=== PATIENT | female | born 1960 | race Caucasian/White ===

== ENCOUNTER 2020-01-03 14:09 | Emergency (ER) | payer BC ==
[~2020-01-03] VITALS: Ht 154.9 cm; Wt 77.1 kg
--- NOTE | 2020-01-03 14:26 | Emergency Department Note ---
History of Present Illnes History of Present Illness Chief Complaint: Head/Face Trauma History of Present Illness This is a 59 year old female, with a history of diabetes, hyperlipidemia, depression, who was sitting at her desk at work, when a ceiling fan fell approximately 8 feet, causing a laceration of the right eyebrow area. Patient had no loss of consciousness. Patient's boss brought her in immediately. She's had no nausea, vomiting, visual changes, no headache, only pain around the laceration site no neck pain, pain in the upper arms, numbness, or tingling. Kushal gregor denies any previous head injuries. 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 Arrival Mode: Car History limited by: language barrier Records Assistant Required: No Onset (how long ago): minute(s) (30) Location: right eyebrow Quality: laceration Radiation: Reports non-radiation Severity: moderate Onset quality: sudden Duration (how long): hour(s) (30 min) Timing of current episode: constant Progression: unchanged Chronicity: new Context: Reports trauma/injury (see HPI); Denies recent illness Relieving factors: none Exacerbating factors: none Associated symptoms: Reports denies other symptoms; Denies headaches, Denies nausea/vomiting, Denies weakness Treatments prior to arrival: none Risk factors: diabetes Past Medical/Family History Physician Review I have reviewed the patient's past medical and family history. Any updates have been documented here. Past Medical History Recent Fever: No Clinical Suspicion of Infectio: No New/Unexplained Change in Ment: No Past Medical History: Diabetes, Depression, Hyperlipedemia (week as) Past Surgical History: Appendectomy, Hysterectomy Social History Smoking Cessation: Current every day smoker Counseling Performed: Yes Alcohol Use: None Any Illegal Drug Use: No TB Exposure/Symptoms: No (his) Physically hurt or threatened: No Family History Family history of heart diseas: No Other Last Tetanus: unknown Any Pre-Existing Lines (PICC,: No Review of Systems Review of Systems Constitutional: Reports no symptoms EENTM: Reports no symptoms Cardiovascular: Reports no symptoms Respiratory: Reports no symptoms Gastrointestinal: Reports no symptoms Genitourinary: Reports no symptoms Musculoskeletal: Reports no symptoms Integumentary: Reports as per HPI Neurological: Reports no symptoms Psychological: Reports no symptoms Review of other systems: All other systems negative Physical Exam Related Data Allergies: Coded Allergies: No Known Allergies (Unverified , 01/03/20) Vital signs reviewed: Yes Physical Exam CONSTITUTIONAL Constitutional: Present well-developed, Present well-nourished HENT HENT: Present normocephalic, Present atraumatic, Present oropharynx clear/moist, Present nose normal HENT L/R: Present left ext ear normal, Present right ext ear normal EYES Eyes: Reports PERRL, Reports conjunctivae normal NECK Neck: Present ROM normal PULMONARY Pulmonary: Present effort normal, Present breath sounds normal CARDIOVASCULAR Cardiovascular: Present regular rhythm, Present heart sounds normal, Present capillary refill normal, Present normal rate GASTROINTESTINAL Abdominal: Present soft, Present nontender, Present bowel sounds normal GENITOURINARY Genitourinary: Present exam deferred SKIN Skin: Present other (linear laceration through the right eyebrow, with the medial aspect extending just above the eyebrow) MUSCULOSKELETAL Musculoskeletal: Present ROM normal NEUROLOGICAL Neurological: Present alert, Present oriented x 3, Present no gross motor or sensory deficits PSYCHOLOGICAL Psychological: Present mood/affect normal, Present judgement normal Results Imaging Imaging results reviewed: Yes Impressions [place] [id number] Patient Name: IMAN SANTANA MR #: [id number] : 1960 Age/Sex: 59/F Req #: [id number] Adm Physician: Ordered by: LAYLA WYMAN MD Report #: [id number] Location: [facility] Room/Bed: Procedure: [id number] HOPD/CT C-SPINE W/O - HOPD Exam Date: 01/03/20 Exam Time: 1532 REPORT STATUS: Signed EXAMINATION: Head and cervical spine CT without contrast. HISTORY: 59-year-old female status post fall, trauma, head laceration, pain COMPARISON: None. TECHNIQUE: Multidetector axial images were obtained without contrast from the foramen magnum to the vertex and through the cervical spine. Dose modulation, iterative reconstruction, and/or weight based adjustment of the mA/kV was utilized to reduce the radiation dose to as low as reasonably achievable. HEAD CT FINDINGS: Skull/scalp: No lytic or blastic lesions. Right forehead soft tissue swelling without underlying fractures. Parenchyma: Normal. No mass, hemorrhage or CT evidence of acute vascular insult. Brain volume: Normal for age. Ventricles: No hydrocephalus or displacement. Arteries: No density suggestive of thrombus. Dural sinuses: No abnormal density. Extra-axial spaces: No abnormal density. Foramen magnum: No mass, Chiari malformation, or basilar invagination. Sella: No obvious mass. Paranasal/mastoid sinuses: Imaged portions unremarkable. CERVICAL SPINE CT FINDINGS: Alignment:Normal alignment and lordosis. Soft tissues: Normal. Vertebrae: Normal height and density. No acute fracture, infection or neoplasm. Degenerative changes: None IMPRESSION: Head CT: No intracranial abnormalities, particularly no posttraumatic intracranial hemorrhage. Cervical spine CT: No fractures or dislocations. Note: Acute post traumatic spinal cord, vascular or ligamentous injury cannot adequately be assessed with CT. Signed by: Dr. Hubert Howe M.D. on 01/03/2020 4:29 PM Dictated By: HUBERT HOWE MD 28 Transcribed By: SALIMA on 01/03/201628 COPY TO: LAYLA WYMAN MD~ Procedures Laceration Laceration: Laceration 1 Site: face Side: right Size (cm): 5 Description: linear Depth: involves muscle layer Local anesthesia: lidocaine 1%, with epi Pre-repair: wound exposed, irrigated extensively, deep structures intact Skin layer closed with: other (Prolene) Size (cm): 5-0 Number of sutures: 8 Technique: simple, interrupted Additional comments Wound edges were well approximated, with good hemostasis. Patient tolerated procedure well, with no immediate complications. Assessment & Plan Medical Decision Making MDM - Keep the wound clean and dry for 24 hours, then gently wash with antibacterial soap and water, dry, and then generously apply [id number] antibiotic ointment such as bacitracin or triple antibiotic ointment. Repeat this daily. - Follow-up in 7-10 days for suture removal - Follow-up sooner, with any signs of infection including redness, drainage from the wound, or increased pain or tenderness. Assessment & Plan Final Impression: (1) Facial laceration (2) Diabetes mellitus (3) Hyperlipidemia Depart Disposition: HOME, SELF-CARE Medications in the ED Neomycin/ Polymyxin/ Bacitracin 0.9 gm STK-MED ONCE .ROUTE ; Start 01/03/20 at 14:28; Stop 01/03/20 at 14:24; Status DC Tetanus/ Diphtheria Toxoids 0.5 ml STK-MED ONCE .ROUTE ; Start 01/03/20 at 14:28; Stop 01/03/20 at 14:24; Status DC LAYLA WYMAN MD Jan 03, 2020 14:26
[2020-01-03] MEDS ORDERED: TETANUS/DIPHTHERIA TOX ADULT 0.5 ML SYR ONE (14:28)
[2020-01-03] MEDS ORDERED: NEOMYCIN/POLYMYX/BACITR OINT 0.9 GM PKT ONE (14:28)
[2020-01-03] MEDS ORDERED: TETANUS/DIPHTHERIA TOX ADULT 0.5 ML SYR IM STA (14:30)
[2020-01-03] MEDS ORDERED: NEOMYCIN/POLYMYXIN/BACITRACIN 15 GM TUBE TOP ONE (14:30)
[2020-01-03] MEDS ORDERED: ACETAMINOPHEN 325 MG TAB PO ONE (15:00)
[2020-01-03] MEDS ORDERED: ACETAMINOPHEN 325 MG TAB ONE (15:05)
[2020-01-03] MEDS ORDERED: LIDOCAINE 1% W/EPINEPHRINE 20 ML VIAL ONE (15:19)
--- NOTE | 2020-01-03 16:33 | Diagnostic Imaging Report ---
EXAMINATION: Head and cervical spine CT without contrast. HISTORY: 59-year-old female status post fall, trauma, head laceration, pain COMPARISON: None. TECHNIQUE: Multidetector axial images were obtained without contrast from the foramen magnum to the vertex and through the cervical spine. Dose modulation, iterative reconstruction, and/or weight based adjustment of the mA/kV was utilized to reduce the radiation dose to as low as reasonably achievable. HEAD CT FINDINGS: Skull/scalp: No lytic or blastic lesions. Right forehead soft tissue swelling without underlying fractures. Parenchyma: Normal. No mass, hemorrhage or CT evidence of acute vascular insult. Brain volume: Normal for age. Ventricles: No hydrocephalus or displacement. Arteries: No density suggestive of thrombus. Dural sinuses: No abnormal density. Extra-axial spaces: No abnormal density. Foramen magnum: No mass, Chiari malformation, or basilar invagination. Sella: No obvious mass. Paranasal/mastoid sinuses: Imaged portions unremarkable. CERVICAL SPINE CT FINDINGS: Alignment:Normal alignment and lordosis. Soft tissues: Normal. Vertebrae: Normal height and density. No acute fracture, infection or neoplasm. Degenerative changes: None IMPRESSION: Head CT: No intracranial abnormalities, particularly no posttraumatic intracranial hemorrhage. Cervical spine CT: No fractures or dislocations. Note: Acute post traumatic spinal cord, vascular or ligamentous injury cannot adequately be assessed with CT. Signed by: Dr. Veronica Howe M.D. on 01/03/2020 4:29 PM
== END 2020-01-03 17:11 | disposition home or self-care (01) ==
LOC: FSED 14:09
DX: S01.111A Laceration without foreign body of right eyelid and periocular area, initial encounter (principal); W20.8XXA Other cause of strike by thrown, projected or falling object, initial encounter; Y99.0 Civilian activity done for income or pay; E11.9 Type 2 diabetes mellitus without complications; E78.5 Hyperlipidemia, unspecified; F32.9 Major depressive disorder, single episode, unspecified; F17.210 Nicotine dependence, cigarettes, uncomplicated
CPT/HCPCS: 70450; 72125; 90471; 90714; 99282

== ENCOUNTER 2020-01-13 13:40 | Emergency (ER) | payer OTHER ==
[~2020-01-13] VITALS: Ht 154.9 cm; Wt 77.1 kg
--- OUTSIDE RECORDS SUMMARY | 2020-01-13 15:54 | XMS REPORT | Continuity of Care Document ---
Author Author [facility] t Organization [facility] Address [address] [place] [address] Dr. Jernigan [address] [place] [phone] Phone Unavailable Care Team Providers Care Bookkeeping Clerks Supervisor Name Role Phone Nasima WYMAN Unavailable Problems This patient has no known problems. Allergies, Adverse Reactions, Alerts This patient has no known allergies or adverse reactions. Medications This patient has no known medications. Procedures This patient has no known procedures. Results Test Description Test Time Test Comments Results Result Comments Source CT BRAIN WO-HOPD 2020-01-03 15:42:00 [place] [address] Patient Name: IMAN SANTANA MR #: [id number] : 1960 Age/Sex: 59/F Req #: [id number] Adm Physician: Ordered by: LAYLA WYMAN MD Report #: [id number] Location: [facility] Room/Bed: Procedure: [id number] HOPD/CT BRAIN WO-HOPD Exam Date: 01/03/20 Exam Time: 1529 REPORT STATUS: Signed EXAMINATION: Head and cervical spine CT without contrast. HISTORY: 59-year-old female status post fall, trauma, head laceration, pain COMPARISON: None. TECHNIQUE: Multidetector axial images were obtained without contrast from the foramen magnum to the vertex and through the cervical spine. Dose modulation, iterative reconstruction, and/or weight based adjustment of the mA/kV was utilized to reduce the radiation dose to as low as reasonably achievable. HEAD CT FINDINGS: Skull/scalp: No lytic or blastic lesions. Right forehead soft tissue swelling without underlying fractures. Parenchyma: Normal. No mass, hemorrhage or CT evidence of acute vascular insult. Brain volume: Normal for age. Ventricles: No hydrocephalus or displacement. Arteries: No density suggestive of thrombus. Dural sinuses: No abnormal density. Extra-axial spaces: No abnormal density. Foramen magnum: No mass, Chiari malformation, or basilar invagination. Sella: No obvious mass. Paranasal/mastoid sinuses: Imaged portions unremarkable. CERVICAL SPINE CT FINDINGS: Alignment:Normal alignment and lordosis. Soft tissues: Normal. Vertebrae: Normal height and density. No acute fracture, infection or neoplasm. Degenerative changes: None IMPRESSION: Head CT: No intracranial abnormalities, particularly no posttraumatic intracranial hemorrhage. Cervical spine CT: No fractures or dislocations. Note: Acute post traumatic spinal cord, vascular or ligamentous injury cannot adequately be assessed with CT. Signed by: Dr. Hubert Howe M.D. on 01/03/2020 4:29 PM Dictated By: HUBERT HOWE MD 28 Transcribed By: SALIMA on 01/03/201628 COPY TO: LAYLA WYMAN MD CT C-SPINE W/O - [facility] 2020-01-03 15:42:00 [place] [address] Patient Name: IMAN SANTANA MR #: [id number] : 1960 Age/Sex: 59/F Req #: [id number] Adm Physician: Ordered by: LAYLA WYMAN MD Report #: [id number] Location: [facility] Room/Bed: Procedure: [id number] HOPD/CT C-SPINE W/O - HOPD Exam Date: 01/03/20 Exam Time: 1532 REPORT STATUS: Signed EXAMINATION: Head and cervical spine CT without contrast. HISTORY: 59-year-old female status post fall, trauma, head laceration, pain COMPARISON: None. TECHNIQUE: Multidetector axial images were obtained without contrast from the foramen magnum to the vertex and through the cervical spine. Dose modulation, iterative reconstruction, and/or weight based adjustment of the mA/kV was utilized to reduce the radiation dose to as low as reasonably achievable. HEAD CT FINDINGS: Skull/scalp: No lytic or blastic lesions. Right forehead soft tissue swelling without underlying fractures. Parenchyma: Normal. No mass, hemorrhage or CT evidence of acute vascular insult. Brain volume: Normal for age. Ventricles: No hydrocephalus or displacement. Arteries: No density suggestive of thrombus. Dural sinuses: No abnormal density. Extra-axial spaces: No abnormal density. Foramen magnum: No mass, Chiari malformation, or basilar invagination. Sella: No obvious mass. Paranasal/mastoid sinuses: Imaged portions unremarkable. CERVICAL SPINE CT FINDINGS: Alignment:Normal alignment and lordosis. Soft tissues: Normal. Vertebrae: Normal height and de nsity. No acute fracture, infection or neoplasm. Degenerative changes: None
--- NOTE | 2020-01-13 16:06 | Emergency Department Note ---
History of Present Illnes History of Present Illness History of Present Illness This is a 59 year old female presents for suture removal. The patient sustained a laceration to her right forehead, almost exclusively along her eyebrow 10 days ago when a ceiling fan fell and struck her head. She states she has had no numbness weakness or tingling. She's had no confusion, dizziness, or lightheadedness. There have been no drainage from her wound. No fever. The periorbital swelling has gradually improved, since her injury but has not completely resolved. She states that her wound is itchy, but no longer painful. Historian: Patient Supervisor Display Fabrication Required: No Onset quality: sudden Duration (how long): week(s) Progression: improving Context: Reports trauma/injury; Denies recent illness, Denies recent travel Relieving factors: none Exacerbating factors: none Associated symptoms: Reports denies other symptoms Treatments prior to arrival: none Past Medical/Family History Physician Review I have reviewed the patient's past medical and family history. Any updates have been documented here. Past Medical History Recent Fever: No Past Medical History: Diabetes, Depression, Hyperlipedemia Past Surgical History: Appendectomy, Hysterectomy Social History Any Illegal Drug Use: No Other Last Tetanus: unknown Physical Exam Related Data Allergies: Coded Allergies: No Known Allergies (Unverified , 01/03/20) Physical Exam CONSTITUTIONAL Constitutional: Present well-developed, Present well-nourished HENT HENT: Present normocephalic, Present other (there is a healing 5 similar laceration on the right forehead, almost exclusively along the eyebrow line. The laceration is sutured with 8 Prolene closed interrupted sutures. There is no drainage or discharge. There is no tenderness to the laceration or face. There is no swelling or erythema of the wound. The lateral aspect is well-healed no wound separation however the medial half of the wound states to separate when I am applying digital pressure. There is slight ecchymosis in the inferior periorbital area.) HENT L/R: Present left ext ear normal, Present right ext ear normal EYES Eyes: Reports PERRL, Reports conjunctivae normal NECK Neck: Present ROM normal PULMONARY Pulmonary: Present effort normal, Present breath sounds normal CARDIOVASCULAR Cardiovascular: Present regular rhythm, Present heart sounds normal, Present capillary refill normal, Present normal rate GASTROINTESTINAL GENITOURINARY SKIN Skin: Absent rash MUSCULOSKELETAL Musculoskeletal: Present ROM normal NEUROLOGICAL Neurological: Present alert, Present oriented x 3, Present no gross motor or sensory deficits PSYCHOLOGICAL Psychological: Present mood/affect normal, Present judgement normal Assessment & Plan Medical Decision Making MDM Patient is 10 days s/p closed head injury. Old chart reviewed from last visit and patient had negative head and C-spine CT. Denies any neurological symptoms since injury. Medial aspect of wound not ready for suture removal. Patient declined having lateral sutures removed and elected to get sutures removed all at the same time. Will have patient return Jan 15 when same MD and RN are working to reaccess suture removal. Assessment & Plan Final Impression: (1) Laceration of forehead (2) Closed head injury (3) Diabetes mellitus (4) Hyperlipidemia Depart Disposition: HOME, SELF-CARE SOFY RODRIGUEZ MD Jan 13, 2020 15:54
== END 2020-01-13 15:50 | disposition home or self-care (01) ==
LOC: FSED 15:50
DX: Z48.00 Encounter for change or removal of nonsurgical wound dressing (principal); E11.9 Type 2 diabetes mellitus without complications; E78.5 Hyperlipidemia, unspecified
CPT/HCPCS: 99282